=== PATIENT | female | born 1980 | race Caucasian/White ===

== ENCOUNTER 2018-08-21 12:31 | Emergency (ER) | payer OTHER ==
[2018-08-21 12:39] VITALS: BP 160/108; TEMP 99.4; BMI 35.8
--- NOTE | 2018-08-21 13:08 | ED.PDOC ---
General ED Provider: Dr. ROSY PAREKH Chief Complaint: Rash Stated Complaint: Rash. Onset this morning. About upper and lower extremities. No recent changes in exposure to environmental agents Time Seen by Physician: 13:05 Mode of Arrival: Walk-In Information Source: Patient Exam Limitations: No limitations Primary Care Provider: ISAMAR RIVAS Nursing and Triage Documentation Reviewed and Agree: Yes Does patient meet sepsis criteria?: No If yes, has appropriate treatment been initiated?: No System Inflammatory Response Syndrome: Not Applicable Sepsis Protocol: For patient's 13 years and over: Temp is 96.8 and below OR 101 and greater Pulse >90 BPM Resp >20/minute Acutely Altered Mental Status Are patient's symptoms suggestive of a new infection, such as: -Pneumonia -Skin, Soft Tissue -Endocarditis -UTI -Bone, Joint Infection -Implantable Device -Acute Abdominal Infection -Wound Infection -Meningitis -Blood Stream Catheter Infection -Unknown Skin Complaint Exam - Skin Rash/Itching Complaint/Exam Onset/Duration: This AM Symptoms Are: Worse Initial Severity: Mild Current Severity: Moderate Potential Exposures: Reports: Unknown Aggravating: Reports: None Alleviating: Reports: None Associated Signs and Symptoms: Denies: Difficulty breathing, Fever, Chills Related History: Similar episode Skin Findings: Present: Urticaria Differential Diagnoses: Allergic Reaction, Systemic Illness, Urticaria Review of Systems - Review Of Systems Constitutional: Reports: No symptoms Eyes: Reports: No symptoms Ears, Nose, Mouth, Throat: Reports: No symptoms Respiratory: Reports: No symptoms Cardiac: Reports: No symptoms GI: Reports: No symptoms : Reports: No symptoms Musculoskeletal: Reports: No symptoms Skin: Reports: Change in color, Rash Neurological: Reports: No symptoms Endocrine: Reports: No symptoms Hematologic/Lymphatic: Reports: No symptoms All Other Systems: Reviewed and Negative Past Medical History - Past Medical History Previously Healthy: Yes Endocrine: Reports: None Cardiovascular: Reports: None Respiratory: Reports: None Hematological: Reports: None Gastrointestinal: Reports: None Genitourinary: Reports: None Neuro/Psych: Reports: None Musculoskeletal: Reports: None Cancer: Reports: None Last Menstrual Period: none - Surgical History General Surgical History: Reports: None - Family History Family History: Reports: None - Social History Smoking Status: Former smoker Hx Substance Use: No Alcohol Screening: None - Immunizations Tetanus Shot up to Date: (pt unsure) Physical Exam - Physical Exam Appearance: Well-appearing, No pain distress, Well-nourished, Obese Ill-appearing: Mild Pain Distress: None Eyes: RAMAN, EOMI, Conjunctiva clear ENT: Ears normal, Nose normal, Erythema Neck: Supple Respiratory: Airway patent, Breath sounds clear, Breath sounds equal, Respirations nonlabored Cardiovascular: RRR, Pulses normal, No rub, No murmur GI/: Soft, Nontender, No masses, Bowel sounds normal, No Organomegaly Musculoskeletal: Normal strength, ROM intact, No edema, No calf tenderness Skin: Warm, Dry, Normal color Neurological: Sensation intact, Motor intact, Reflexes intact, Cranial nerves intact, Alert, Oriented Psychiatric: Affect appropriate, Mood appropriate Critical Care Note - Critical Care Note Total Time (mins): 0 Course - Course Hematology/Chemistry: 08/21/18 13:13 08/21/18 13:13 Orders, Labs, Meds: Lab Review 08/21/18 08/21/18 13:13 13:13 WBC 5.80 RBC 4.43 Hgb 13.6 Hct 41.0 MCV 92.6 MCH 30.7 MCHC 33.2 RDW Coeff of Luiz 12.0 Plt Count 293 Immature Gran % (Auto) 0.2 Neut % (Auto) 62.4 Lymph % (Auto) 24.7 Jennings % (Auto) 10.3 H Eos % (Auto) 1.9 Baso % (Auto) 0.5 Immature Gran # (Auto) 0.0 Neut # (Auto) 3.6 Lymph # (Auto) 1.4 Jennings # (Auto) 0.6 Eos # (Auto) 0.1 Baso # (Auto) 0.0 Sodium 139.7 Potassium 3.94 Chloride 105.2 Carbon Dioxide 26.8 Anion Gap 11.64 BUN 12.2 Creatinine 0.82 Estimated GFR (MDRD) 78.00 BUN/Creatinine Ratio 14.87 Glucose 116.5 H Calcium 9.34 Total Bilirubin 0.44 AST 30.3 ALT 26.8 Alkaline Phosphatase 56.1 Total Protein 7.82 Albumin 3.99 Globulin 3.83 Albumin/Globulin Ratio 1.04 Orders Category Date Time Status CBC W/ AUTO DIFF Stat LAB 08/21/18 13:13 Completed CMP [COMPREHENSIVE METABOLIC PANEL] Stat LAB 08/21/18 13:13 Completed RAPID STREP SCREEN [MOLECULAR GROUP A STREP] Stat LAB 08/21/18 13:31 Completed Cetirizine HCl [Zyrtec Oral Belem] MEDS 08/21/18 13:53 Discontinued 10 mg PO ONCE STA Diphenhydramine Liquid [Benadryl] MEDS 08/21/18 13:54 Discontinued 25 mg PO ONCE STA Prednisone MEDS 08/21/18 13:57 Discontinued 20 mg PO ONCE STA Medications Discontinued Medications Generic Name Dose Route Start Last Admin Trade Name Freq PRN Reason Stop Dose Admin Cetirizine HCl 10 mg 08/21/18 13:53 08/21/18 14:19 Zyrtec Oral [place] PO 08/21/18 13:54 10 mg ONCE STA Administration Diphenhydramine HCl 25 mg 08/21/18 13:54 08/21/18 14:20 Benadryl PO 08/21/18 13:55 25 mg ONCE STA Administration Prednisone 20 mg 08/21/18 13:57 08/21/18 14:19 Prednisone PO 08/21/18 13:58 20 mg ONCE STA Administration Vital Signs: Temp Pulse Resp BP Pulse Ox 08/21/18 12:32 99.4 F 106 H 18 160/108 H 94 L Departure - Departure Time of Disposition: 15:15 Disposition: HOME SELF-CARE Discharge Problem: Urticaria, Allergic reaction Instructions: Urticaria (ED) Condition: Good Pt referred to PMD for follow-up: Yes IPMP verified?: No Additional Instructions: Take meds as directed Follow up pcp as needed Prescriptions: Cetirizine HCl [Zyrtec] 10 mg PO DAILY #10 tablet Diphenhydramine HCl 25 mg PO QID PRN #20 capsule PRN Reason: Rash/itching Prednisone 10 mg PO DAILY #9 tablet Allergies/Adverse Reactions: Allergies codeine Adverse Reaction (Verified 08/21/18 12:43) Home Medications: Ambulatory Orders Cetirizine HCl [Zyrtec] 10 mg PO DAILY #10 tablet 08/21/18 Diphenhydramine HCl 25 mg PO QID PRN #20 capsule 08/21/18 Prednisone 10 mg PO DAILY #9 tablet 08/21/18 Disposition Discussed With: Patient
[2018-08-21] MEDS ORDERED: ZYRTEC ORAL SOL PO STA (13:53)
[2018-08-21] MEDS ORDERED: BENADRYL PO STA (13:54)
[2018-08-21] MEDS ORDERED: PREDNISONE PO STA (13:57)
== END 2018-08-21 15:37 | disposition home or self-care (01) ==
LOC: ED 12:31
DX: L50.0 Allergic urticaria (principal)
CPT/HCPCS: 36415; 80053; 85025; 87651; 99283